=== PATIENT | female | born 1960 | race Caucasian/White ===

== ENCOUNTER 2018-12-02 05:45 | Day surgery (SDC) | payer OTHER ==
[~2018-12-02 05:45] MED LIST: ATIVAN2 M1 PO; DEPAKOTE ER500 MG PO; ESTAZOLAM2 MG PO; INTEGRA F CAPS1 EACH PO; KLONOPIN PO; NEURONTIN300 MG PO; PROTONIX40 MG PO; RITALIN LA20 MG PO; SYNTHROID75 MCG; SYNTROID PO; TRAZODONE HCL150 MG PO; ZOLOFT100 MG PO; ZOLOFT50 MG PO; ZoLOFT 50MG TABLET PO
== END 2018-12-02 10:20 | disposition home or self-care (01) ==
LOC: CIR.AMB 05:45
DX: R15.9 Full incontinence of feces (principal)
CPT/HCPCS: 64581; C1778

== ENCOUNTER 2018-12-16 05:34 | Day surgery (SDC) | payer OTHER | END 2018-12-16 13:40 | disposition home or self-care (01) | LOC: CIR.AMB 05:34 | DX: R15.9 Full incontinence of feces (principal) | CPT/HCPCS: 64590; C1767 ==

== ENCOUNTER 2019-08-13 08:34 | Day surgery (SDC) | payer OTHER | END 2019-08-13 15:00 | disposition home or self-care (01) | LOC: AMB-ENDOS 08:34 | DX: K62.4 Stenosis of anus and rectum (principal); K63.89 Other specified diseases of intestine; Z86.010 Personal history of colon polyps ==